=== PATIENT | female | born 1975 | race Caucasian/White ===

== ENCOUNTER 2020-06-28 06:30 | Outpatient (REF) | payer OTHER, SELFPAY ==
[2020-06-28 11:08] LABS: MANUAL DIFF FLAG NO
[2020-06-28 11:11] LABS: Basophils Absolute Auto 0.1 X10*3/uL (0.0-0.2); Basophils Percent Auto 0.8 % (0-2); Eosinophils Absolute Auto 0.2 X10*3/uL (0.0-0.4); Eosinophils Percent Auto 3.6 % (0-4); Hematocrit 42.1 % (37-47); Hemoglobin 14.2 g/dl (12.0-16.0); Imm Gran Abs Auto 0.02 X10*3/uL (0.00-0.03); Imm Gran Pct Auto 0.3 % (0.0-0.4); Lymphocytes Absolute Auto 1.7 X10*3/uL (1.2-4.9); Lymphocytes Percent Auto 26.1 % (20-40); Mean Corpuscular HGB Conc 33.7 g/dl (31.0-35.0); Mean Corpuscular Hemoglobin 30.9 pg (27.0-33.0); Mean Corpuscular Volume 91.7 fL (80-98); Mean Platelet Volume 9.9 fL (9.4-12.3); Monocytes Absolute Auto 0.7 X10*3/uL (0.1-1.2); Monocytes Percent Auto 10.4 % (2-11); Neutrophils Absolute Auto 3.9 X10*3/uL (2.0-8.3); Neutrophils Percent Auto 58.8 % (45-73); Platelet Count 252 X10*3/uL (160-400); Red Blood Count 4.59 X10*6/uL (4.20-5.50); White Blood Count 6.6 X10*3/uL (4.8-10.8)
[2020-06-28 11:46] LABS: Alanine Aminotransferase 15 U/L (0-31); Albumin Level 4.1 g/dL (3.5-5.0); Alkaline Phosphatase 58 U/L (39-117); Anion Gap 11 (12-20); Aspartate Amino Transferase 14 U/L (5-31); Blood Urea Nitrogen 10 mg/dL (9-16); Calcium 8.6 mg/dL (8.4-10.2); Carbon Dioxide 25 mmol/L (22-29); Chloride 106 mmol/L (96-108); Cholesterol 150 mg/dL; Estimated Glomerular Filt Rate > 60; Glucose Fasting 100 mg/dL (60-99); HDL Cholesterol 42 mg/dL; LDL Cholesterol Calculated 94 mg/dl; Potassium 4.3 mmol/l (3.3-5.1); Sodium 138 mmol/L (135-145); Total Protein 6.2 g/dL (6.5-8.0); Triglycerides 72 mg/dL
[2020-06-28 12:08] LABS: Thyroid Stimulating Hormone 1.87 mIU/mL (0.32-4.0)
== END 2020-06-28 06:31 | disposition home or self-care (01) ==
LOC: HO.HMGCLDS 06:30
PROVIDERS: PCP Internal Medicine; Visit Provider Internal Medicine
DX: E89.0 Postprocedural hypothyroidism (principal)
CPT/HCPCS: 36415; 80053; 80061; 84443; 85025

== ENCOUNTER 2021-01-19 08:31 | Outpatient (REF) | payer OTHER, SELFPAY ==
[2021-01-20 05:31] LABS: Rubeola IgG (Measles) >300.00 AU/mL
[2021-01-20 08:18] LABS: HBS Num1 17.67 mIU/mL (0-7.99); ~Hepatitis B Surface Antibody REACTIVE (Nonreactive)
[2021-01-21 18:27] LABS: TS Negative Control Passed; TS Panel A 0; TS Panel B 0; TS Positive Control Passed; TSpotTB Negative (SeeBelow)
== END 2021-01-19 08:32 | disposition home or self-care (01) ==
LOC: HO.HMGCLDS 08:31
PROVIDERS: PCP Internal Medicine; Visit Provider Internal Medicine
DX: Z92.29 Personal history of other drug therapy (principal)
CPT/HCPCS: 36415; 86481; 86706; 86735; 86762; 86765; 86787

== ENCOUNTER 2021-04-20 11:37 | Outpatient (REF) | payer OTHER, SELFPAY ==
[2021-04-20 13:53] LABS: MANUAL DIFF FLAG NO
[2021-04-20 14:01] LABS: Basophils Percent Auto 0.6 % (0-2); Eosinophils Absolute Auto 0.2 X10*3/uL (0.0-0.4); Eosinophils Percent Auto 3.4 % (0-4); Hematocrit 41.2 % (37-47); Hemoglobin 13.8 g/dl (12.0-16.0); Imm Gran Abs Auto 0.03 X10*3/uL (0.00-0.03); Imm Gran Pct Auto 0.4 % (0.0-0.4); Lymphocytes Absolute Auto 1.5 X10*3/uL (1.2-4.9); Lymphocytes Percent Auto 22.2 % (20-40); Mean Corpuscular HGB Conc 33.5 g/dl (31.0-35.0); Mean Corpuscular Hemoglobin 30.3 pg (27.0-33.0); Mean Corpuscular Volume 90.4 fL (80-98); Mean Platelet Volume 10.1 fL (9.4-12.3); Monocytes Absolute Auto 0.6 X10*3/uL (0.1-1.2); Monocytes Percent Auto 8.2 % (2-11); Neutrophils Absolute Auto 4.4 X10*3/uL (2.0-8.3); Neutrophils Percent Auto 65.2 % (45-73); Platelet Count 281 X10*3/uL (160-400); Red Blood Count 4.56 X10*6/uL (4.20-5.50); Red Cell Distribution Width 11.9 % (11.0-16.0); White Blood Count 6.7 X10*3/uL (4.8-10.8)
[2021-04-20 14:09] LABS: Alanine Aminotransferase 18 U/L (0-31); Albumin Level 4.3 g/dL (3.5-5.0); Alkaline Phosphatase 64 U/L (39-117); Anion Gap 13 (12-20); Aspartate Amino Transferase 16 U/L (5-31); Bilirubin Total 0.9 mg/dL (0.0-1.0); Blood Urea Nitrogen 11 mg/dL (9-16); Calcium 9.4 mg/dL (8.4-10.2); Carbon Dioxide 24 mmol/L (22-29); Chloride 107 mmol/L (96-108); Estimated Glomerular Filt Rate > 60; Glucose Random 89 mg/dL (60-115); Potassium 4.3 mmol/L (3.3-5.1); Sodium 140 mmol/L (135-145); Total Protein 6.7 g/dL (6.5-8.0)
[2021-04-20 14:44] LABS: Erythrocyte Sedimentation Rate 5 MM/HR (0-20)
[2021-04-22 05:06] LABS: Lyme Abs Screen <0.90 index
== END 2021-04-20 11:38 | disposition home or self-care (01) ==
LOC: HO.HMGCLDS 11:37
PROVIDERS: PCP Internal Medicine; Visit Provider Internal Medicine
DX: R53.83 Other fatigue (principal)
CPT/HCPCS: 36415; 80053; 85025; 85652; 86140; 86617; 86618

== ENCOUNTER 2021-12-21 07:50 | Outpatient (REF) | payer OTHER, SELFPAY ==
[2021-12-21 12:12] LABS: Thyroid Stimulating Hormone 0.53 uIU/mL (0.32-4.0)
== END 2021-12-21 07:51 | disposition home or self-care (01) ==
LOC: HO.HMGCLDS 07:50
PROVIDERS: Visit Provider Internal Medicine
DX: E89.0 Postprocedural hypothyroidism (principal)
CPT/HCPCS: 36415; 84443

== ENCOUNTER 2022-02-08 14:02 | Outpatient (REF) | payer OTHER, SELFPAY ==
--- NOTE | ~2022-02-08 | CT_ITS ---
EXAMINATION: CT angio head CLINICAL INFORMATION: Headaches associated with orgasmic sexual activity. COMPARISON: No relevant prior imaging. TECHNIQUE: Dining Services Manager images were obtained. A CT angiogram of the head and neck was performed in the arterial phase after the intravenous administration of 75 mL Omnipaque 350. Pre and delayed postcontrast images of the head were also obtained. MIP reconstructions were generated in multiple orientations at the acquisition workstation. Multiple three-dimensional surface rendered images and maximum intensity projection images were generated on a dedicated 3-D lab workstation. Arterial stenoses are measured in accordance with NASCET criteria or similar method if applicable. This CT examination was performed using dose optimization techniques as appropriate, including one or more of the following: Automated exposure control, iterative reconstruction, and adjustment of technique factors (mA and/or kVp) according to patient size (this includes techniques or standardized protocols for targeted exams where dose is matched to indication/reason for exam). Total exam dose-length product 2068 mGy-cm FINDINGS: Head: There is no acute intracranial hemorrhage. Delayed postcontrast images reveal no abnormal mass or enhancement. There is no intracranial mass effect or midline shift. No abnormal extra-axial collection. Lateral and third ventricles are normal. No evidence of intrahepatic celaya-white matter differentiation is preserved and there is no evidence of acute territorial infarct. The calvarium and skull base are intact. Mastoid air cells and middle ear cavities are well aerated. There is mild to moderate paranasal sinus disease involving the right maxillary sinus and the anterior ethmoid air cells. CT angiogram head: Visualized extracranial internal carotid arteries are patent. The intracranial internal carotid arteries are normal. Distal cervical vertebral arteries are patent. Intradural vertebral artery segments and basilar artery are patent. Anterior, middle, and posterior cerebral complexes are normal. No intracranial large vessel occlusion. No evidence of aneurysm or high flow vascular lesion. CT/CT angio head IMPRESSION: Unremarkable CT angiogram of the head. No evidence of an intracranial aneurysm or high flow vascular lesion. No abnormal intracranial mass or enhancement. No evidence of acute territorial infarct or hemorrhage.
[2022-02-08] MEDS: iohexoL 350 MG/ML 100 ML INFUS..BTL IV (15:04)
== END 2022-02-08 14:03 | disposition home or self-care (01) ==
LOC: HO.CT 14:02
PROVIDERS: PCP Internal Medicine; Visit Provider Psychiatry & Neurology Neurology
DX: G44.82 Headache associated with sexual activity (principal)
CPT/HCPCS: 70496; Q9967

== ENCOUNTER 2022-09-21 08:11 | Outpatient (REF) | payer OTHER, SELFPAY ==
[2022-09-21 11:15] LABS: MANUAL DIFF FLAG NO
[2022-09-21 11:19] LABS: Basophils Percent Auto 0.6 % (0-2); Eosinophils Absolute Auto 0.3 X10*3/uL (0.0-0.4); Eosinophils Percent Auto 3.7 % (0-4); Hematocrit 40.8 % (37.0-47.0); Hemoglobin 13.9 g/dl (12.0-16.0); Imm Gran Abs Auto 0.03 X10*3/uL (0.00-0.03); Imm Gran Pct Auto 0.4 % (0.0-0.4); Lymphocytes Absolute Auto 1.7 X10*3/uL (1.2-4.9); Lymphocytes Percent Auto 24.1 % (20-40); Mean Corpuscular HGB Conc 34.1 g/dl (31.0-35.0); Mean Corpuscular Hemoglobin 30.8 pg (27.0-33.0); Mean Corpuscular Volume 90.5 fL (80.0-98.0); Mean Platelet Volume 9.5 fL (9.4-12.3); Monocytes Absolute Auto 0.6 X10*3/uL (0.1-1.2); Neutrophils Absolute Auto 4.4 x10*3/uL (2.0-8.3); Neutrophils Percent Auto 62.2 % (45-73); Platelet Count 223 X10*3/uL (160-400); Red Blood Count 4.51 X10*6/uL (4.20-5.50); Red Cell Distribution Width 12.3 % (11.0-16.0); White Blood Count 7.1 X10*3/uL (4.8-10.8)
[2022-09-21 12:17] LABS: Alanine Aminotransferase 17 U/L (0-31); Albumin Level 4.1 g/dL (3.5-5.0); Alkaline Phosphatase 61 U/L (39-117); Anion Gap 9 (12-20); Aspartate Amino Transferase 15 U/L (5-31); Bilirubin Total 1.7 mg/dL (0.0-1.0); Blood Urea Nitrogen 11 mg/dL (9-16); Calcium 8.8 mg/dL (8.4-10.2); Carbon Dioxide 25 mmol/L (22-29); Chloride 108 mmol/L (96-108); Cholesterol 168 mg/dL; Estimated Glomerular Filt Rate > 60; Glucose Fasting 96 mg/dL (60-99); HDL Cholesterol 46 mg/dL; LDL Cholesterol Calculated 106 mg/dl; Potassium 3.9 mmol/L (3.3-5.1); Sodium 138 mmol/L (135-145); Total Protein 6.1 g/dL (6.5-8.0); Triglycerides 83 mg/dL
[2022-09-21 12:38] LABS: Thyroid Stimulating Hormone 2.04 uIU/mL (0.32-4.0)
== END 2022-09-21 08:12 | disposition home or self-care (01) ==
LOC: HO.HMGCLDS 08:11
PROVIDERS: PCP Internal Medicine; Visit Provider Internal Medicine
DX: Z00.00 Encounter for general adult medical examination without abnormal findings (principal); E89.0 Postprocedural hypothyroidism; F41.9 Anxiety disorder, unspecified
CPT/HCPCS: 36415; 80053; 80061; 82306; 84443; 85025

== ENCOUNTER 2022-10-01 14:12 | Outpatient (REF) | payer OTHER, SELFPAY | END 2022-10-01 14:13 | disposition home or self-care (01) | LOC: HO.HMGCLDS 14:12 | PROVIDERS: PCP Internal Medicine; Visit Provider Otolaryngology | DX: J30.89 Other allergic rhinitis (principal) | CPT/HCPCS: 36415; 82785; 86003 ==

== ENCOUNTER 2023-09-27 07:32 | Outpatient (REF) | payer OTHER, SELFPAY | END 2023-09-27 07:33 | disposition home or self-care (01) | LOC: HO.HMGCLDS 07:32 | PROVIDERS: PCP Internal Medicine; Visit Provider Internal Medicine | DX: Z00.00 Encounter for general adult medical examination without abnormal findings (principal); E89.0 Postprocedural hypothyroidism; F41.9 Anxiety disorder, unspecified; C64.2 Malignant neoplasm of left kidney, except renal pelvis | CPT/HCPCS: 36415; 80053; 80061; 82306; 84443; 85025 ==

== ENCOUNTER 2023-12-06 07:00 | Outpatient (RCR) | payer OTHER, SELFPAY | END 2023-12-06 08:09 | disposition home or self-care (01) | LOC: HO.PTCHIC 07:00 | PROVIDERS: PCP Internal Medicine; Visit Provider Internal Medicine | DX: M54.32 Sciatica, left side (principal) | CPT/HCPCS: 97110; 97161 ==

== ENCOUNTER 2024-09-04 06:33 | Outpatient (REF) | payer OTHER, SELFPAY ==
--- OUTSIDE RECORDS SUMMARY | 2024-09-04 06:36 | XMS_ITS | Continuity of Care Document ---
Author Organization [facility] Address [address] [place] [address] [address] [place], [place] Phone [phone] Care Team Providers Care Inspector And Clerk Name Role Phone Adriana Banerjee MD Care Team Information Recei alvina Unavailable Social History Type Date Description Comments Sex Unknown
--- OUTSIDE RECORDS SUMMARY | 2024-09-04 06:36 | XMS_ITS ---
Author Organization Jarrod Greene DO [facility] Address [address] [place] [address] [phone] Care Team Providers Care Die Reamer Name Role Phone Jarrod Greene Primary Care Provider [phone] REASON FOR VISIT New Refill Request MEDICATIONS Medication SIG (Take, Route, Frequency, Duration) Notes Start Date End Date Status Fluticasone Propionate 50 MCG/ACT 1 spray in each nostril Nasally Twice a day for 30 days Active Encounters Encounter Location Date Provider Diagnosis Jarrod Greene DO, [address] [phone] 07/22/2024 Jarrod Greene PLAN OF TREATMENT Medication Medication Name Sig Start Date Stop Date Notes Fluticasone Propionate 50 MCG/ACT 1 spray in each nostril Nasally Twice a day for 30 days Next Appt Details Provider Name:Jarrod marcus, 09/08/2024 09:00:00 AM, [address] [place] [address], [phone],
--- OUTSIDE RECORDS SUMMARY | 2024-09-04 06:36 | XMS_ITS ---
Author Organization Jarrod Greene DO [facility] Address [address] [place] [address] [phone] Care Team Providers Care Coring Machine Operator Name Role Phone Jarrod Greene Primary Care Provider REASON FOR VISIT Cough MEDICATIONS Medication SIG (Take, Route, Fr equency, Duration) Notes Start Date End Date Status Azithromycin 250 MG [address] day, then 1 tablet daily for 4 days Orally Once a day for 5 day(s) 08/28/2024 Active Encounters Encounter Location Date Provider Diagnosis Jarrod Greene DO, [facility] [address] [place] [address] [phone] 08/28/2024 Jarrod Greene PLAN OF TREATMENT Medication Medication Name Sig Start Date Stop Date Notes Azithromycin 250 MG [address] day, then 1 tablet daily for 4 days Orally Once a day for 5 day(s) 08/28/2024 Next Appt Details Provider Name:Jarrod marcus, 09/08/2024 09:00:00 AM, [address] [place] [address], [phone],
--- OUTSIDE RECORDS SUMMARY | 2024-09-04 06:36 | XMS_ITS | Patient Health Record ---
Author Organization Jarrod Greene DO, FAC Address [address] [address] [phone] Care Team Providers Care Junction Maker Name Role Phone Jarrod Greene Primary Care Provider ALLERGIES No Known Allergies RESULTS Component Value Reference Range Notes Complete Blood Count Auto Di ff Reviewed date:09/27/2023 01:07:35 PM Interpretation:Normal Performing Lab:[facility], [address] [place] [phone] Notes/Report: White Blood Count 7.6 4.8-10.8 X10*3/uL Red Blood Count 4.73 4.20-5.50 X10*6/uL Hemoglobin 14.1 12.0-16.0 g/dl Hematocrit 42.0 37.0-47.0 % Mean Corpuscular Volume 88.8 80.0-98.0 fL Mean Corpuscular Hemoglobin 29.8 27.0-33.0 pg Mean Corpuscular HGB Conc 33.6 31.0-35.0 g/dl Red Cell Distribution Width 11.9 11.0-16.0 % Platelet Count 276 160-400 X10*3/uL Mean Platelet Volume 9.6 9.4-12.3 fL Neutrophils Percent Auto 67.1 45-73 % Imm Gran Pct Auto 0.3 0.0-0.4 % Lymphocytes Percent Auto 21.3 20-40 % Monocytes Percent Auto 8.2 2-11 % Eosinophils Percent Auto 2.6 0-4 % Basophils Percent Auto 0.5 0-2 % NRBC Pct Auto 0.0 0.0-0.2 /100WBC Neutrophils Absolute Auto 5.1 2.0-8.3 x10*3/u L Imm Gran Abs Auto 0.02 0.00-0.03 X10*3/uL Lymphocytes Absolute Auto 1.6 1.2-4.9 X10*3/u L Monocytes Absolute Auto 0.6 0.1-1.2 X10*3/uL Eosinophils Absolute Auto 0.2 0.0-0.4 X10*3/u L Basophils Absolute Auto 0.0 0.0-0.2 X10*3/uL NRBC Abs Auto 0.000 0.0-0.012 X10*3/uL Comprehensive Herrick. Panel Fa st Reviewed date:09/27/2023 01:08:15 PM Interpretation:Abnormal Performing Lab:[facility], [address] [place] [phone] Notes/Report: Sodium 137 135-145 mmol/L Potassium 4.1 3.3-5.1 mmol/L Chloride 106 96-108 mmol/L Carbon Dioxide 26 22-29 mmol/L Anion Gap 9 12-20 Blood Urea Nitrogen 11 9-16 mg/dL Creatinine 0.72 0.5-1.4 mg/dL Estimated Glomerular Filt Rate > 60 NOTE: For -Peruvian individuals, multiply the result by 1.210. Chronic Kidney Disease: Estimated GFR < 60 mL/min/1.73m2 Severe Kidney Disease: Estimated GFR < 15 mL/min/1.73m2 Glucose Fasting 110 60-99 mg/dL A fasting glucose from 100-125 mg/dl is considered impaired (pre-diabetes). Calcium 9.0 8.4-10.2 mg/dL Bilirubin Total 1.2 0.0-1.0 mg/dL Aspartate Amino Transferase 15 5-31 U/L Alanine Aminotransferase 16 0-31 U/L Total Protein 6.5 6.5-8.0 g/dL Albumin Level 4.1 3.5-5.0 g/dL Alkaline Phosphatase 57 39-117 U/L Lipid Panel Reviewed date:09/27/2023 01:07:35 PM Interpretation:Normal Performing Lab:[facility], [address] [place] [phone] Notes/Report: Triglycerides 81 <150 mg/dL Desirable Triglyceride: less than 150 mg/dL Borderline High Triglyceride 150-199 mg/dL High Triglyceride: 200-499 mg/dL Very High Triglyceride: greater than or equal to 5OO mg/dL Cholesterol 167 <200 mg/dL Desirable Cholesterol: less than 200 mg/dL Borderline High Cholesterol: 200-239 mg/dL High Cholesterol: greater than 239 mg/dL LDL Cholesterol Calculated 101 <100 mg/dL Desirable LDL: less than 100 mg/dL Near Optimal/Above Optimal LDL: 110-129 mg/dL Borderline High LDL: 130-159 mg/dL High LDL: 160-189 mg/dL Very High LDL: greater than or equal to 190 mg/dL HDL Cholesterol 50 >40 mg/dL Desirable HDL: greater than 40 mg/dL Note: This HDL assay may give artificially low results in patients with liver disease. Vitamin D 25-OH Total Reviewed date:09/27/2023 01:07:35 PM Interpretation:Normal Performing Lab:[address] [phone] Notes/Report: Vitamin D 25-OH Total 29.2 >30 ng/mL Health Based Reference Values* < 20 ng/mL Deficient 20-30 ng/mL Insufficient > 30 ng/mL Sufficient *Lita CHAU. N Engl J Med. 2007;357:266-280 Care must be taken in interpreting Vitamin D results from different laboratories and methodologies. Published data demonstrated that results from patients undergoing hemodialysis may show a negative bias when tested with various automated 25-OH vitamin D assays when compared to LC-MS/MS. When testing samples from patients whose predominant form of Vitamin D is Vitamin D2, such as patients receiving Vitamin D2 supplementation, results that are subtherapeutic should be confirmed with another method such as LC-MS/MS. Thyroid Stimulating Hormone Reviewed date:09/27/2023 01:07:35 PM Interpretation:Normal Performing Lab:[facility], [address] [place] [phone] Notes/Report: Thyroid Stimulating Hormone 0.82 0.32-4.0 uIU/ mL TSH 3rd Generation ([facility]) REASON FOR REFERRAL No Information MEDICATIONS Medication SIG (Take, Route, Frequency, Duration) Notes Start Date End Date Status Levothyroxine Sodium 137 MCG 1 tablet in the morning on an empty stomach, 2 on Saturday Orally Once a day for 90 days Active Sulfamethoxazole-Trimethopri m 800-160 MG 1 tablet Orally Twice a day for 7 days 03/17/2024 Active LORazepam 1 MG 1 tablet as needed Orally Twice a day for 30 days 07/21/2024 Active Doxycycline Hyclate 100 MG 1 tablet Oral ly Twice a day for 7 days 07/21/2024 Active Azithromycin 250 MG [address] day, then 1 tablet daily for 4 days Orally Once a day for 5 day(s) 08/28/2024 Active Fluconazole 100 MG 1 tablet Orally Once a day for 7 days 06/02/2024 Active Fluticasone Propionate 50 MCG/ACT 1 spray in each nostril Nasally Twice a day for 30 days Active buPROPion HCl ER (XL) 150 MG 1 tablet in the morning Orally Once a day for 90 days Active IMMUNIZATIONS Vaccine Route Administration Date Status Comme nts Influenza Unknown 10/02/2012 Administered Influenza Unknown 05/14/2011 Administered Influenza Unknown 05/24/2013 Administered Influenza Quad IM Intramuscular 06/13/2018 Administered Influenza Quad IM Intramuscular 08/07/2019 Administered Influenza Quad IM Intramuscular 09/13/2020 Administered COVID-19 Moderna Vaccine Unknown 10/28/2021 Administere d COVID-19 Pfizer BioNTech Unknown 11/04/2020 Administere d COVID-19 Pfizer BioNTech Unknown 10/14/2020 Administere d COVID-19 Pfizer BioNTech Unknown 12/10/2020 Administere d Influenza Quad Unknown 05/07/2023 Administered SOCIAL HISTORY Tobacco Use: Social History Observation Description Date Details (start date - stop date) Never Smoker NA - NA Sex Assigned At : Social History Observation Description Sex Assigned At Unknown Tobacco Use/Smoking Question Answer Notes Patient is a nonsmoker Additional Findings: Tobacco Non-User Cu rrent non-smoker, currently using no form of tobacco Alcohol Screen Question Answer Notes Did you have a drink contain ing alcohol in the past year? Yes How often did you have a dri nk containing alcohol in the past year? 2 to 4 times a month (2 points) How many drinks did you have on a typical day when you were drinking in the past year? 1 or 2 drinks (0 point) How often did you have 6 or more drinks on one occasion in the past year? Never (0 point) Points 2 Interpretation Negative PROBLEMS Problem Type ICD Code Onset Dates Problem Status W/U Status Risk SNOMED Code Notes Problem Sciatica, left side (M54.32) Active confirmed Left side sciatica (884451902049 104) Problem Anxiety (F41.9) Active confirmed 738797 02 Problem Postablative hypothyroidism (E89.0) Active confirmed 634121322 Problem Acute non-recurrent maxillary sinusitis (J01.00) Active confirmed 09098252 Problem Renal cell carcinoma of left kidney (C64.2) Active confirmed 714785333 VITAL SIGNS Blood pressure diastolic 74 mm Hg 11/06/2023 Height 64.5 in 11/06/2023 Blood pressure systolic 124 mm Hg 11/06/2023 Weight 154 lbs 11/06/2023 BMI 26.02 kg/m2 11/06/2023 Encounters Encounter Location Date Provider Diagnosis Jarrod Greene DO, [address] [id number] 11/05/2023 Jarrod Greene DO, [address] [id number] 11/06/2023 Jarrod Greene Left axillary fullne ss R22.32 Jarrod Greene DO, [address] [id number] 10/30/2023 Jarrod Greene DO, [address] [id number] 10/30/2023 Jarrod Greene DO, [address] [id number] 11/04/2023 Jarrod Greene DO, [address] [id number] 11/04/2023 Jarrod Greene DO, [address] [id number] 11/22/2023 Jarrod Greene DO, [address] [id number] 12/05/2023 Jarrod Greene Anxiety F41.9 Jarrod Greene DO, [address] [id number] 12/05/2023 Jarrod Greene DO, [address] [id number] 02/24/2024 Jarrod Greene Postablative hypothyroidism E89.0 Jarrod Greene DO, [address] [id number] 03/17/2024 Jarrod Greene DO, [address] [id number] 05/08/2024 Jarrod Greene Anxiety F41.9 Jarrod Greene DO, [address] [id number] 06/01/2024 Jarrod Greene DO, [address] [id number] 07/21/2024 Jarrod Greene Anxiety F41.9 Jarrod Greene DO, [address] [id number] 07/22/2024 Jarrod Betancourtman Jarrod Greene DO, [address] [id number] 08/28/2024 Jarrod Greene DO, [address] [id number] 08/28/2024 Jarrod Jc ASSESSMENTS Encounter Date Diagnosis Assessment Notes Treatment Notes Treatment Clinical Notes 11/06/2023 Left axillary fullness (ICD-10 - R22.32) Advised to get her mammogram next month, and ask for the results to be forwarded to me. Reassurance provided 12/05/2023 Anxiety (ICD-10 - F41.9) 02/24/2024 Postablative hypothyroidism (ICD-10 - E89.0) 05/08/2024 Anxiety (ICD-10 - F41.9) 07/21/2024 Anxiety (ICD-10 - F41.9) PLAN OF TREATMENT Next Appt Details Provider Name:Jarrod Sanon angeline, 09/08/2024 09:00:00 AM, [address] [place] [address], [phone], Insurance Providers Payer Name Payer Address Payer Phone Subscriber Number Group Number Insured Name Patient Relationship to Insured Coverage Start Date Coverage End Date [address] NETTA GOMEZ [id number] Ifrah Ortega Self - patient is the insured MEDICAL (GENERAL) HISTORY Medical History History ICD Code Graves Disease s/p [place] treatment secondary hypothyroidism anxiety renal cell cancer s/p resection Left renal mass N28.89 Renal cell carcinoma of left kidney C64. 2 Surgical History Surgery Date(Month/Year) wisdom teeth extraction section left partial nephrectomy secondary to RC C 03/2019
--- OUTSIDE RECORDS SUMMARY | 2024-09-04 06:36 | XMS_ITS ---
Author Organization Jarrod Greene DO, FACP Address [address] [place] [address] [phone] Care Team Providers Care Refueling Ramp Attendant Name Role Phone Jarrod Greene Primary Care Provider REASON FOR VISIT RE:Cough Encounters Encounter Location Date Provider Diagnosis Jarrod Greene DO, [facility] [address] [place] [address] [phone] 08/28/2024 Jarrod Greene PLAN OF TREATMENT Next Appt Details Provider Name:Jarrod marcus, 09/08/2024 09:00:00 AM, [address] [place] [address], [phone],
[2024-09-04 10:58] LABS: Anion Gap 11 (12-20); Blood Urea Nitrogen 10 mg/dL (9-16); Calcium 8.5 mg/dL (8.4-10.2); Carbon Dioxide 25 mmol/L (22-29); Chloride 105 mmol/L (96-108); Estimated Glomerular Filt Rate > 60; Glucose Random 98 mg/dL (60-115); Sodium 137 mmol/L (135-145)
[2024-09-04 11:18] LABS: TSH reflex Free T4 2.46 uIU/mL (0.32-4.0)
== END 2024-09-04 06:34 | disposition home or self-care (01) ==
LOC: HO.HMGCLDS 06:33
PROVIDERS: PCP Internal Medicine; Visit Provider Internal Medicine
DX: E89.0 Postprocedural hypothyroidism (principal)
CPT/HCPCS: 36415; 80048; 84443

== ENCOUNTER 2025-05-12 10:03 | Outpatient (AMB) | payer OTHER, SELFPAY ==
--- NOTE | 2025-05-12 10:06 | A.OFFPC_ITS ---
Vital Signs 05/12/25 10:09 05/12/25 15:31 Height 5 ft 5.2 in Weight 155 lb 6 oz BMI 25.7 BP 140/90 H 136/68 Blood Pressure Location Lt brachial Position Sitting Respiration 16 Pulse 89 Pulse Source Pulse Oximeter Temp 98.1 F Temp Source Temporal Artery Scan Pulse Oximetry (%) 99 Oxygen Delivery Method Room Air Intake Visit Reasons: follow up Shell Core And Molding Supervisor Required: No Accompanied by: Self / Same As Patient Allergies No Known Allergies Allergy (Verified 05/12/25 10:35) Medication List - Last Reconciled 05/12/25 by Cari Perez PA-C bupropion HCl XL (Wellbutrin XL) 150 mg PO QAM fluticasone propionate 50 mcg/actuation 1 spray intranasal BID levothyroxine 137 mcg PO DAILY lorazepam 1 mg PO DAILY PRN Tobacco use date assessed: 05/12/25 Dental Screening Dental Screen Date: 05/12/25 Did you have a dental visit in the last 12 months?: Yes Did you have a dental problem in the last 6 months where you did not have access to dental care?: No Was dental information given to patient?: Patient has dentist HPI follow up HPI Details The patient is a 49-year-old female presenting for an annual physical examination and to address specific health concerns. The patient has a history of Graves' disease, for which she underwent radiation treatment, resulting in secondary hypothyroidism. She is currently on levothyroxine for management. She also has a history of renal cell carcinoma, for which she underwent a left nephrectomy five years ago. She is currently in remission and no longer requires regular imaging. The patient reports a history of anxiety, for which she is taking Wellbutrin and lorazepam. She has recently increased her Wellbutrin dosage to 300 mg as per previous medical advice. 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 She is also experiencing snoring and is considering a sleep study to evaluate for sleep apnea. Her family history includes a mother with hypothyroidism, and she has two sons, one of whom is adopted. She has experienced significant personal loss, including the of her daughter shortly after . Social History - Family: Mother with hypothyroidism, tw o sons (one adopted), experienced loss of a daughter shortly after - Substance Use: Denies smoking, drug us e, and minimal alcohol consumption [facility] Medical History (Updated 05/12/25 @ 15:51 by Cari Perez PA-C) Anxiety History of mammogram (~12/25/24) Renal cell carcinoma of left kidney Secondary hypothyroidism Graves disease Annual physical exam Encounter for assessment of STD exposure Snoring Surgical History (Updated 05/12/25 @ 15:49 by Cari Perez PA-C) History of colonoscopy (~10/06/20) H/O partial nephrectomy History of section H/O wisdom tooth extraction Family History Mother Thyroid condition Social History Housing: House Alcohol intake: current Alcohol intake frequency: a few times a week Patient Tobacco Use Status: Never used Tobacco service: No Current occupational status: employed Cognitive needs: No Hearing needs: No Vision needs: Yes (reading glasses) Questionnaire PHQ-9 Over the last 2 weeks, how often have you been bothered by any of the following problems? 1. Little interest or pleasure in doing things: not at all 2. Feeling down, depressed, or hopeless: not at all 3. Trouble falling or staying asleep, or sleeping too much: not at all 4. Feeling tired or having little energy: not at all 5. Poor appetite or overeating: not at all 6. Feeling bad about yourself - or that you are a failure or have let yourself or your family down: not at all 7. Trouble concentrating on things, such as reading the newspaper or watching television: not at all 8. Moving or speaking so slowly that other people could have noticed. Or the opposite - being so fidgety or restless that you have been moving around a lot more than usual: not at all 9. Thoughts that you would be better off or of hurting yourself in some way: not at all Total score: 0 Depression Screening Interpretation: Negative Depression Screening Done: Yes 05168 - PHQ-9 Billing: Yes Source: Developed by Drs. Jarrod Cobb, Brooke Hill, Kurt Culver and colleagues, with an educational deonte from [employer]. Thrive Questionnaire Date Thrive assessed: 08/20/25 I am a: Patient What is your living situation today?: I have a steady place to live Within the past 12 months, did the food you bought not last and you didn't have the money to get more?: Never true Within the past 12 months, did you worry whether your food would run out before you got money to buy more?: Never true Do you have trouble paying for medicines?: No Do you have trouble getting transportation to medical appointments?: No Do you have trouble paying your heating and electricity bill?: No Do you have trouble taking care of your child, family member or friend?: No Do you have trouble with day-to-day activities such as bathing, preparing meals, shopping, managing finances, etc.?: No Are you currently unemployed and looking for a job?: No Are you interested in more education?: No Please select the resources that you would like help with: None Currently or been in a relationship where the following occur: No concerns reported THRIVE Score: 0 AUDIT C Alcohol Use Questionnaire (AUDIT-C) 1. How often do you have a drink containing alcohol?: 2-3 times a week 2. How many drinks containing alcohol do you have on a typical day when you are drinking?: 3 or 4 3. How often do you have six or more drinks on one occasion?: Never Total Score: 4 Score Reviewed/Action Taken: No FAUSTO-7 AMB Questionnaire FAUSTO-7 Date FAUSTO - 7 assessed: 05/12/25 Feeling nervous, anxious, or on edge: 2 = More than half the days Not being able to stop or control worryin = Several days Worrying too much about different things: 2 = More than half the days Trouble relaxin = Not at all Being so restless that it is hard to sit still: 1 = Several days Becoming easily annoyed or irritable: 2 = More than half the days Feeling afraid as if something awful might happen: 1 = Several days Total FAUSTO-7 score (0-4 normal; 5-9 mild; 10-14 moderate; 15-21 severe): 9 Source: Developed by Drs. Jarrod Cobb, Brooke Hill, Kurt Culver and colleagues, with an educational deonte from [employer] FAUSTO-7 Assessment Billing FAUSTO-7 Assessment Tool: FAUSTO-7 Assessment 30030 Review of Systems Const Details: - General: Denies significant weight changes, fatigue, or fever - Cardiovascular: Denies chest pain, palpitations, or syncope - Respiratory: Reports snoring, denies dyspnea or cough - Neurological: Denies headaches, dizziness, or balance issues All systems reviewed & are unremarkable except as noted in HPI and below Physical exam (Primary Care) Vital Signs: Last Vital Signs Temp 98.1 F 05/12/25 10:09 Pulse 89 05/12/25 10:09 Resp 16 05/12/25 10:09 BP 140/90 H 05/12/25 10:09 Pulse Ox 99 05/12/25 10:09 Oxygen Delivery Method Room Air 05/12/25 10:09 Care Plan Goal for BP management: <140/90 at Goal BMI result Body Mass Index 25.7 BMI Assessment/Plan discussion: High BMI High, discussed plan: lifestyle, weight reduction, dietary, physical activity and alcohol moderation Tobacco/Smoking Status: Tobacco use Status Tobacco use date assessed 05/12/25 05/12/25 10:19 Patient Tobacco Use Status Never used Tobacco 05/12/25 10:19 PHQ-9: PHQ-9 Score PHQ-9: Total score 0 05/12/25 10:35 Depression Screening Interpretation: Negative Thrive Assessment: Date of Thrive Assessment Date Thrive assessed 05/12/25 05/12/25 10:19 Currently or been in a relationship where the following occur: No concerns reported Const Other: Appearance: Alert. Oriented X3. No acute distress. Head: Normal external exam. Normocephalic. Atraumatic. Eyes: Pupils are equal, round, and reactive to light. Extraocular movements intact. Conjunctiva and sclera normal. Eyelids normal. Ears: External auditory canal normal. Tympanic membranes normal. Throat: Pharynx normal. Uvula midline. Moist mucous membranes. Neck: Normal inspection. Neck supple. Full range of motion. No adenopathy. Thyroid Normal. No meningeal signs. No neck mass noted. Cardiovascular: Normal heart rate and rhythm. Heart sound normal. No murmurs noted. Pulses normal throughout. Respiratory: No respiratory distress. Painless inspiration. Breath sounds normal. No wheezes/rales/rhonchi noted. Chest nontender. No accessory muscle usage noted or decreased air movement noted. Abdomen: Soft and nontender. No distention noted. No organomegaly noted. Back: No costovertebral angle tenderness. Full range of motion noted. Skin: Skin warm and dry. Normal skin color. Normal skin turgor. No rashes/lesions/lacerations noted. Extremities: No lower extremity edema. Extremities exhibit normal range of motion. Neuro: Oriented X 3. No motor deficit. No sensory deficit. Reflexes normal. Coding Level of Care Code Est Pt Level 4 (05466) Complex EM visit Add On G2211 Diagnoses Annual physical exam Z00.00 Graves disease E05.00 Secondary hypothyroidism E03.8 Renal cell carcinoma of left kidney C64.2 H/O partial nephrectomy Z90.5 Anxiety F41.9 Snoring R06.83 Encounter for assessment of STD exposure Z20.2 Additional Codes FAUSTO-7 Assessment Billing - FAUSTO-7 Assessment Tool: FAUSTO-7 Assessment 83256 ([id number]) PHQ-9 - 27678 - PHQ-9 Billing: Yes ([id number]) Assessment & Plan Assessment & Plan (1) Annual physical exam: Code(s): Z00.00 - Encounter for general adult medical examination without abnormal findings Category: Medical Plan: The patient will undergo routine blood work including CBC, CMP, thyroid function tests, and STD screening as part of her preventative care. (2) Graves disease: Comment: Status post [place] treatment Code(s): E05.00 - Thyrotoxicosis with diffuse goiter without thyrotoxic crisis or storm Category: Medical Plan: The patient continues to manage her Graves' disease with levothyroxine for secondary hypothyroidism resulting from prior radiation treatment. Patient currently on levothyroxine 137 mcg daily. Condition is chronic and stable continue to monitor. (3) Secondary hypothyroidism: Code(s): E03.8 - Other specified hypothyroidism Category: Medical Plan: The patient continues to manage her Graves' disease with levothyroxine for secondary hypothyroidism resulting from prior radiation treatment. Patient currently on levothyroxine 137 mcg daily. Condition is chronic and stable continue to monitor. (4) Renal cell carcinoma of left kidney: Comment: Status post resection. Being followed by Dr. Du at [facility] 5 years in remission this year. Last MRI was last 2023. Code(s): C64.2 - Malignant neoplasm of left kidney, except renal pelvis Category: Medical Plan: The patient is in remission following a left nephrectomy five years ago and no longer requires regular imaging. (5) H/O partial nephrectomy: Comment: Left partial nephrectomy secondary to renal cell carcinoma 03/2019 Code(s): Z90.5 - Acquired absence of kidney Category: Surgical Plan: The patient is in remission following a left nephrectomy five years ago and no longer requires regular imaging. (6) Anxiety: Code(s): F41.9 - Anxiety disorder, unspecified Category: Medical Plan: The patient is currently taking Wellbutrin and lorazepam for anxiety management, with a recent increase in Wellbutrin dosage to 300 mg. (7) Snoring: Code(s): R06.83 - Snoring Category: Medical Plan: Will refer patient for in-home sleep study. (8) Encounter for assessment of STD exposure: Code(s): Z20.2 - Contact with and (suspected) exposure to infections with a predominantly sexual mode of transmission Category: Medical Plan: The patient will undergo routine blood work including CBC, CMP, thyroid function tests, and STD screening as part of her preventative care. Plan Plan Patient was informed and verbally consented to the use of an ambient scribe for clinic note documentation during this visit. 1. Graves' Disease The patient continues to manage her Graves' disease with levothyroxine for secondary hypothyroidism resulting from prior radiation treatment. 2. Renal Cell Carcinoma Status Post Left Nephrectomy The patient is in remission following a left nephrectomy five years ago and no longer requires regular imaging. 3. Anxiety The patient is currently taking Wellbutrin and lorazepam for anxiety management, with a recent increase in Wellbutrin dosage to 300 mg. 4. Preventative Care The patient will undergo routine blood work including CBC, CMP, thyroid function tests, and STD screening as part of her preventative care. During the visit, we discussed the management of the patient's Graves' disease with levothyroxine and her anxiety treatment with Wellbutrin and lorazepam. We also reviewed her remission status post-nephrectomy for renal cell carcinoma and the cessation of regular imaging. Preventative care measures were outlined, inc luding blood work and STD screening. Orders: Orders C Reactive Protein Today Z00.00 - Encounter for general adult medical examination without abnormal findings Complete Blood Count Auto Diff Today Z00.00 - Encounter for general adult medical examination without abnormal findings Hemoglobin A1c Today Z00.00 - Encounter for general adult medical examination without abnormal findings Magnesium Today Z00.00 - Encounter for general adult medical examination without abnormal findings RPR Monitor reflex titer Today Z20.2 - Contact with and (suspected) exposure to infections with a predominantly sexual mode of transmission CT NG by PCR Urine Today Z20.2 - Contact with and (suspected) exposure to infections with a predominantly sexual mode of transmission Herpes Simplex Virus Ab IgG Today Z20.2 - Contact with and (suspected) exposure to infections with a predominantly sexual mode of transmission Comprehensive [place]. Panel Fast Today Z00.00 - Encounter for general adult medical examination without abnormal findings TSH reflex Free T4 Today Z00.00 - Encounter for general adult medical examination without abnormal findings Vitamin B12 and Folate Today Z00.00 - Encounter for general adult medical examination without abnormal findings Vitamin D 25-OH Total Today Z00.00 - Encounter for general adult medical examination without abnormal findings Lipid Panel Today Z00.00 - Encounter for general adult medical examination without abnormal findings Liver Panel Today Z00.00 - Encounter for general adult medical examination without abnormal findings RT home sleep study Today R06.83 - Snoring HIV Ab/Ag Today Z20.2 - Contact with and (suspected) exposure to infections with a predominantly sexual mode of transmission Referrals Psychiatry Referral F32.A - Depression, unspecified Counseling Referral F41.9 - Anxiety disorder, unspecified Medications: Changed From bupropion HCl XL (Wellbutrin XL) 150 mg PO QAM 90 tabs 1RF To bupropion HCl XL 300 mg PO QAM 90 tabs 3RF 90 days Refilled lorazepam 1 mg PO DAILY PRN 30 tabs 0RF anxiety Patient Instructions: - Continue taking levothyroxine and monitor thyroid function regularly. - Maintain current anxiety medication regimen and follow up with a mental health professional as needed. - Complete scheduled blood work and STD screening. - Consider a sleep study if snoring persists.
[2025-05-12 10:09] VITALS: BP 140/90; PULSE 89; RESP 16; TEMP 36.7; O2SAT 99; BMI 25.7
--- OUTSIDE RECORDS SUMMARY | 2025-05-12 11:05 | XMS_ITS ---
Author Name [facility] Organization Unknown Care Team Organization Name Specialty Phone Email Start Date End Da te [facility] Not Found Primary Care 10/13/2023 [facility] 023 07/02/2023 [facility] 023
--- OUTSIDE RECORDS SUMMARY | 2025-05-12 11:05 | XMS_ITS | Encounter Summary ---
Author Organization [facility] Address [address] [place] [address] Phone Care Team Providers Care Journeyman Lineman Name Role Phone Jarrod Greene DO Primary Care Provider [phone] Encounter Details Date Type Department Care Team (Latest Contact Info) Description 09/02/2020 Transcribe Orders Virtual Department [address] [place] [address] Swapnil Darling MD [address] [place] [phone] [email or web address] Pre-operative laboratory examination (Primary Dx) Social History Tobacco Use Types Packs/Day Years Used Date Smoking Tobacco: Never Assessed Comments Unknown Sex and Gender Information Value Date Recorded Sex Assigned at Not on file Legal Sex Female 10:30 PM EDT Gender Identity Not on file Sexual Orientation Not on file documented as of this encounter Plan of Treatment Not on file documented as of this encounter Visit Diagnoses Diagnosis Pre-operative laboratory examination- Primary Pre-procedural laboratory examination documented in this encounter Care Teams Journeyman Lineman Relationship Specialty Start Date End Date Jarrod Greene DO [address] [place] [phone] PCP - General Internal Medicine 09/05/20 documented as of this encounter Additional Source Comments The information contained in this document represents components of the legal health record. It is not the complete legal health record.[facility]
--- OUTSIDE RECORDS SUMMARY | 2025-05-12 11:05 | XMS_ITS ---
Continuity of Care Document (CCD) Created on: May 12, 2025 Ifrah Ortega External Reference #: [id number] : [id number] Sex: Female Author Organization [facility] Address [address] [place] [address] [address] [place], [place] Phone [phone] Care Team Providers Care Driftman Name Role Phone Adriana Banerjee MD Care Team Information Recei alvina Unavailable Social History Type Date Description Comments Sex Female Sex Unknown
[2025-05-12 15:31] VITALS: BP 136/68
== END 2025-05-12 10:49 | disposition home or self-care (01) ==
LOC: HO.HMCSH 10:03
PROVIDERS: PCP Internal Medicine; Visit Provider Physician Assistant Medical
DX: Z00.00 Encounter for general adult medical examination without abnormal findings (principal); E05.00 Thyrotoxicosis with diffuse goiter without thyrotoxic crisis or storm; E03.8 Other specified hypothyroidism; C64.2 Malignant neoplasm of left kidney, except renal pelvis; Z90.5 Acquired absence of kidney; F41.9 Anxiety disorder, unspecified; R06.83 Snoring; Z20.2 Contact with and (suspected) exposure to infections with a predominantly sexual mode of transmission

== ENCOUNTER → 2025-05-12 10:03 | Outpatient (BNVA) | payer OTHER, SELFPAY | PROVIDERS: PCP Internal Medicine; Visit Provider Physician Assistant Medical | DX: Z00.00 Encounter for general adult medical examination without abnormal findings (principal); E05.00 Thyrotoxicosis with diffuse goiter without thyrotoxic crisis or storm; F41.9 Anxiety disorder, unspecified; E03.9 Hypothyroidism, unspecified; E03.8 Other specified hypothyroidism; R06.83 Snoring; Z90.5 Acquired absence of kidney; Z85.528 Personal history of other malignant neoplasm of kidney | CPT/HCPCS: 96127 ==

== ENCOUNTER 2025-05-22 07:34 | Outpatient (REF) | payer OTHER, SELFPAY ==
--- OUTSIDE RECORDS SUMMARY | 2025-05-22 07:37 | XMS_ITS | Clinical Summary ---
Author Organization [facility] Address [address] [place], [place] [id number] Phone Care Team Providers Care Breeder Hen Service Technician Name Role Phone Jarrod Greene DO Primary Care Provider Social History Tobacco Use Types Packs/Day Years Used Date Smoking Tobacco: Never Assessed Education Answer Date Recorded Are you interested in more education? Not on maxx e 01/18/2023 Are you concerned about learning? Not on file 01/18/2023 No 01/18/2023 No 01/18/2023 Digital Access Answer Date Recorded No 02/18/2023 No 02/18/2023 No 02/18/2023 Reliable internet access at home? Not on file 02/18/2023 Device with a working camera? Not on file Comments Unknown Sex and Gender Information Value Date Recorded Sex Assigned at Not on file Legal Sex Female 10:30 PM EDT Gender Identity Not on file Sexual Orientation Not on file Plan of Treatment Not on file Medical Devices Not on file Insurance CIGNA PPO CIGNA PPO CIGNA PPO CIGNA PPO CIGNA PPO CIGNA PPO [employer]IGNA PPO [employer]IG[employer] PPO [employer]IGNA PPO Care Teams Breeder Hen Service Technician Relationship Specialty Start Date End Date Jarrod Greene DO [address] [place] [phone] PCP - General Internal Medicine 09/05/20 Additional Source Comments The information contained in this document represents components of the legal health record. It is not the complete legal health record.[facility]
--- OUTSIDE RECORDS SUMMARY | 2025-05-22 07:37 | XMS_ITS | Continuity of Care Document ---
Author Organization [facility] Address [address] [place] [address] [address] [place], [place] Phone [phone] Care Team Providers Care Covered Button Maker Name Role Phone Adriana Banerjee MD Care Team Information Recei alvina Unavailable Social History Type Date Description Comments Sex Female Sex Unknown
--- OUTSIDE RECORDS SUMMARY | 2025-05-22 07:37 | XMS_ITS | Encounter Summary ---
Author Organization [facility] Address [address] [place] [address] Phone Care Team Providers Care Insurance Actuary Name Role Phone Jarrod Greene DO Primary Care Provider [phone] Encounter Details Date Type Department Care Team (Latest Contact Info) Description 09/02/2020 Transcribe Orders Virtual Department [address] [place] [address] Swapnil Darling MD [address] [place] [phone] [email or web address] Pre-operative laboratory examination (Primary [...] examination documented in this encounter Care Teams Insurance Actuary Relationship Specialty Start Date End Date Jarrod Greene DO [address] [place] [phone] PCP - General Internal Medicine 09/05/20 documented as of this encounter Additional Source Comments The information contained in this document represents components of the legal health record. It is not the complete legal health record.[facility]
--- OUTSIDE RECORDS SUMMARY | 2025-05-22 07:37 | XMS_ITS | Encounter Summary ---
Author Organization [facility] Address [address] [place] [address] Phone Care Team Providers Care Sewer Cleaner Name Role Phone Jarrod Greene Primary Care Provider Encounter Details Date Type Department Care Team (Latest Contact Info) Description 10/03/2020 Transcribe Orders Virtual Department [address] [place] [address] Swapnil Darling MD [address] [place] [phone] [email or web address] Pre-operative laboratory examination (Primary Dx) Social History [...] on file documented as of this encounter Results * COVID-19 PCR Order (10/03/2020 12:51 PM EST) COVID-19 Comment [id number] [facility] COVID Testing Status Sent to [facility] Other 10/03/2020 12:5 1 PM EST 10/03/2020 6:16 PM EST us Swapnil Darling MD BODY FLUIDS AND STOOLS ORDERAB LES Final Result [facility] [address] [place] [address] documented in this encounter Visit Diagnoses Diagnosis Pre-operative laboratory examination- Primary Pre-procedural laboratory examination documented in this encounter Care Teams Sewer Cleaner Relationship Specialty Start Date End Date Jarrod Greene DO [address] [place] [phone] PCP - General Internal Medicine 09/05/20 documented as of this encounter Additional Source Comments The information contained in this document represents components of the legal health record. It is not the complete legal health record.[facility]
[2025-05-22 11:03] LABS: MANUAL DIFF FLAG NO
[2025-05-22 11:11] LABS: Hematocrit 42.0 % (37.0-47.0); Hemoglobin 14.7 g/dl (12.0-16.0); Imm Gran Abs Auto 0.04 X10*3/uL (0.00-0.03); Imm Gran Pct Auto 0.5 % (0.0-0.4); Lymphocytes Absolute Auto 1.8 X10*3/uL (1.2-4.9); Mean Corpuscular HGB Conc 35.0 g/dl (31.0-35.0); Mean Corpuscular Hemoglobin 31.1 pg (27.0-33.0); Mean Corpuscular Volume 89.0 fL (80.0-98.0); NRBC Abs Auto 0.000 X10*3/uL (0.0-0.012); NRBC Pct Auto 0.0 /100WBC (0.0-0.2); Platelet Count 236 X10*3/uL (160-400); Red Blood Count 4.72 X10*6/uL (4.20-5.50); White Blood Count 8.6 X10*3/uL (4.8-10.8)
[2025-05-22 11:18] LABS: Hemoglobin A1C 125.7503 umol/L; Total Hemoglobin (HGBA1C) 3804.2107 umol/L
[2025-05-22 11:28] LABS: Alanine Aminotransferase 18 U/L (0-31); Albumin Level 4.3 g/dL (3.5-5.0); Alkaline Phosphatase 57 U/L (39-117); Anion Gap 12 (12-20); Aspartate Amino Transferase 24 U/L (5-31); Blood Urea Nitrogen 12 mg/dL (9-16); Calcium 8.8 mg/dL (8.4-10.2); Carbon Dioxide 23 mmol/L (22-29); Chloride 108 mmol/L (96-108); Cholesterol 165 mg/dL (<200); Estimated Glomerular Filt Rate > 60; HDL Cholesterol 45 mg/dL (>40); Magnesium 2.0 mg/dL (1.6-2.6); Potassium 4.1 mmol/L (3.3-5.1); Sodium 139 mmol/L (135-145); Total Protein 6.3 g/dL (6.5-8.0); Triglycerides 74 mg/dL (<150)
[2025-05-22 11:36] LABS: HIV Num 1 0.06 S/CO (0.00-0.99)
[2025-05-22 11:51] LABS: Folate 13.0 ng/mL (> or = 4.0); Vitamin B12 526 pg/mL (200-900)
[2025-05-22 15:10] LABS: CT PCR Urine NOT DETECTED (Not Detect.); NG PCR Urine NOT DETECTED (Not Detect.)
== END 2025-05-22 07:35 | disposition home or self-care (01) ==
LOC: HO.HMGCLDS 07:34
PROVIDERS: PCP Physician Assistant Medical; Visit Provider Physician Assistant Medical
DX: Z00.00 Encounter for general adult medical examination without abnormal findings (principal); Z20.2 Contact with and (suspected) exposure to infections with a predominantly sexual mode of transmission; Z13.1 Encounter for screening for diabetes mellitus; Z13.21 Encounter for screening for nutritional disorder; Z13.29 Encounter for screening for other suspected endocrine disorder; Z13.6 Encounter for screening for cardiovascular disorders; Z11.3 Encounter for screening for infections with a predominantly sexual mode of transmission; Z11.8 Encounter for screening for other infectious and parasitic diseases; Z11.4 Encounter for screening for human immunodeficiency virus [HIV]
CPT/HCPCS: 80053; 80061; 80076; 82248; 82306; 82607; 82746; 83036; 83735; 84443; 85025; 86140; 86592; 86695; 86696; 87389; 87491; 87591

== ENCOUNTER → 2025-07-27 15:57 | Outpatient (REF) | payer OTHER, SELFPAY ==
--- OUTSIDE RECORDS SUMMARY | 2025-07-27 18:22 | XMS_ITS | Encounter Summary ---
Author Organization [facility] Address [address] [place] [address] Phone Care Team Providers Care Communication Coordinator Name Role Phone Jarrod Greene DO Primary Care Provider [phone] Encounter Details Date Type Department Care Team (Latest Contact Info) Description 09/02/2020 Transcribe Orders Virtual Department [address] [place] [address] Swapnil Darling MD [address] [place] [phone] [email or web address] Pre-operative laboratory examination (Primary Dx) Social History [...] examination documented in this encounter Care Teams Communication Coordinator Relationship Specialty Start Date End Date Jarrod Greene DO [address] [place] [phone] PCP - General Internal Medicine 09/05/20 documented as of this encounter Additional Source Comments The information contained in this document represents components of the legal health record. It is not the complete legal health record.[facility]
--- OUTSIDE RECORDS SUMMARY | 2025-07-27 18:23 | XMS_ITS | Encounter Summary ---
Author Organization [facility] Address [address] [place] [phone] Phone Care Team Providers Care Engineering Inspector Name Role Phone Jarrod Greene Primary Care Provider Encounter Details Date Type Department Care Team (Latest Contact Info) Description 10/03/2020 Transcribe Orders Virtual Department [address] [place] [phone] Swapnil Darling MD [address] [place] [phone] [email or web address] Pre-operative laboratory examination (Primary Dx) Social History [...] (10/03/2020 12:51 PM EST) COVID-19 Comment [id number] [facility] COVID Testing Status Sent to [facility] Other 10/03/2020 12:5 1 PM EST 10/03/2020 6:16 PM EST us Swapnil Darling MD LAB GENERAL ORDERABLES Final R esult [facility] [address] [place] [address] documented in this encounter Visit Diagnoses Diagnosis Pre-operative laboratory examination- Primary Pre-procedural laboratory examination documented in this encounter Care Teams Engineering Inspector Relationship Specialty Start Date End Date Jarrod Greene DO [address] [place] [phone] PCP - General Internal Medicine 09/05/20 documented as of this encounter Additional Source Comments The information contained in this document represents components of the legal health record. It is not the complete legal health record.[facility]
--- OUTSIDE RECORDS SUMMARY | 2025-07-27 18:23 | XMS_ITS | Continuity of Care Document ---
Author Organization [facility] Address [address] [place] [address] [address] [place], [place] Phone [phone] Care Team Providers Care Wardrobe Consultant Name Role Phone Adriana Banerjee MD Care Team Information Recei alvina Unavailable Social History Type Date Description Comments Sex Female Sex Unknown
--- OUTSIDE RECORDS SUMMARY | 2025-07-27 18:23 | XMS_ITS | Clinical Summary ---
Author Organization [facility] Address [address] [place], [place] [phone] Phone Care Team Providers Care Mineral Engineer Name Role Phone Jarrod Greene DO Primary [...] PPO CIGNA PPO CIGNA PPO Care Teams Mineral Engineer Relationship Specialty Start Date End Date Jarrod Greene DO [address] [place] [id number] PCP - General Internal Medicine 09/05/20 Additional Source Comments The information contained in this document represents components of the legal health record. It is not the complete legal health record.[facility]
== END ==
LOC: HO.SL 15:57
PROVIDERS: PCP Physician Assistant Medical; Visit Provider Physician Assistant Medical
DX: R06.83 Snoring (principal)
CPT/HCPCS: 95806

== ENCOUNTER → 2025-07-27 16:05 | Outpatient (BNV) | payer OTHER, SELFPAY | PROVIDERS: PCP Physician Assistant Medical; Visit Provider Internal Medicine | DX: R06.83 Snoring (principal) | CPT/HCPCS: 95806 ==